=== PATIENT | male | born 1975 | race Caucasian/White ===

== ENCOUNTER 2018-09-16 23:32 | Emergency (ER) | payer OTHER ==
[~2018-09-16] VITALS: Ht 190.5 cm; Wt 115.7 kg
--- NOTE | 2018-09-17 00:07 | NUR ---
ED Nurse Note: Pt walked into ER stating that he has a laceration on L ring finger. Pt is AO x 4times, VSS, on room air no distress. MUNAD seen Pt at bedside.
[2018-09-17] MEDS ORDERED: Surgicel 4in x 8in TOPIC ONE (00:30)
[2018-09-17] MEDS ORDERED: Lidocaine 1% 10mg/ml/Epi 0.005mg/ml 30ml vial INJ ONE (00:30)
[2018-09-17 00:50] VITALS: BP 136/77
[2018-09-17] MEDS ORDERED: CEPHALEXIN500 MG ORAL (00:50)
[2018-09-17] MEDS ORDERED: IBUPROFEN600 MG ORAL (00:50)
[2018-09-17 01:10] VITALS: BP 136/77
--- NOTE | 2018-09-17 01:10 | NUR ---
ED Nurse Note: Pt cleared DC by ERMLarry. Pt is AO x 4times, VSS, on room air no distress. Belongings given to Pt. DC and meds instructions given to Pt, Pt understood well. ID bend removed. Pt walkled out unit with steady gait.
--- NOTE | 2018-09-18 02:48 | Emergency Room Report ---
History of Present Illness General Chief Complaint: Laceration Source: Patient Present Illness HPI Patient is a 43-year-old male presented after increased bleeding from a laceration. 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 Patient reports having injury approximately 1 hour prior to arrival. Patient reports having up-to-date tetanus vaccine. He had been having persistent bleeding and had been unable to control this. He denies other locations of pain. He is right-hand dominant. Patient had been attempting to hold direct pressure however the bleeding had not stopped. Allergies: Coded Allergies: No Known Allergies (Unverified , 09/17/18) Patient History Past Medical History: see triage record Reviewed Nursing Documentation: PMH: Agreed; PSxH: Agreed Nursing Documentation-PMH Past Medical History: No Stated History Review of Systems All Other Systems: negative except mentioned in HPI Physical Exam Vital Signs Date Time Temp Pulse Resp B/P (MAP) Pulse Ox O2 Delivery O2 Flow Rate FiO2 09/17/18 00:04 98.1 69 14 133/71 99 09/17/18 00:50 Room Air General Appearance: well appearing, no apparent distress, alert, GCS 15 Head: normocephalic, atraumatic ENT: hearing grossly normal, normal voice Neck: full range of motion, supple Respiratory: no respiratory distress, speaking full sentences Cardiovascular #1: normal inspection Gastrointestinal: normal inspection Neurologic: normal inspection, alert, oriented x3, responsive, bag grader III-XII nml as tested, normal gait Psychiatric: mood/affect normal Skin: other - skin avulsion to left ring finger, small amount of oozing Medical Decision Making Diagnostic Impression: Primary Impression: Fingertip avulsion ER Course . .Patient presented for finger injury. Differential diagnosis include was not limited to foreign body, arterial injury, nerve injury among others. Patient has a benign exam and does not appear to require any further imaging or laboratory testing at this time. Patient reports having up-to-date tetanus vaccine. Patient was noted to have some small vessels which were persistently bleeding. Patient's digit was topically anesthetized with lidocaine. Electrocautery was performed with control of bleeding. Patient was subsequently irrigated by tech and antibiotic ointment was applied. Patient appears to have a skin avulsion. There is not appear to be any evident bony injury. Patient was given prescription for topical antibiotics. He was advised to change dressings daily and to follow-up with workers comp physician in 2-3 days for wound check.Patient does not appear to have any significant blood loss.Patient was given prescription for oral antibiotics as well as pain medications.Patient is placed on limited duty and advised not to use his left upper extremity Last Vital Signs Date Time Temp Pulse Resp B/P (MAP) Pulse Ox O2 Delivery O2 Flow Rate FiO2 09/17/18 01:10 98.3 85 14 136/77 99 Room Air Status: improved Disposition: HOME, SELF-CARE Condition: Stable Scripts Ibuprofen* (MOTRIN*) 600 Mg Tablet 600 MG ORAL Q8H PRN for For Pain, #30 TAB 0 Refills Prov: Jeramy Beth MD 09/17/18 Cephalexin* (KEFLEX*) 500 Mg Capsule 500 MG ORAL EVERY 6 HOURS, #28 CAP Prov: Jeramy Beth MD 09/17/18 Referrals: NOT CHOSEN [facility]/,REFERRING (PCP) Patient Instructions: Traumatic Finger Amputation Jeramy Beth MD Sep 18, 2018 02:48
== END 2018-09-17 01:10 | disposition home or self-care (01) ==
LOC: EMR 09-17 00:20
DX: S61.215A Laceration without foreign body of left ring finger without damage to nail, initial encounter (principal); W26.0XXA Contact with knife, initial encounter; Y92.511 Restaurant or cafe as the place of occurrence of the external cause
CPT/HCPCS: 99283

== ENCOUNTER 2018-09-19 13:11 | Emergency (ER) | payer OTHER ==
[~2018-09-19] VITALS: Ht 190.5 cm; Wt 115.7 kg
[~2018-09-19 13:11] MED LIST: CEPHALEXIN500 MG ORAL; IBUPROFEN600 MG ORAL
--- NOTE | 2018-09-19 13:30 | NUR ---
ED Nurse Note: Patient walked in d/t left ring finger abrasion check up; pt was seen at [facility] on Friday and was informed by ERMD to come back in 3 days for wound re-check. Pt denies pain at this time.
[2018-09-19 13:35] VITALS: BP 152/102
--- NOTE | 2018-09-19 14:14 | Emergency Room Report ---
History of Present Illness General Chief Complaint: Wound Recheck/Suture Removal Source: Patient Present Illness HPI 43 YO Male presents to the ED for finger tip avulsion follow up. has been changing dressing daily. healing but not completely healed yet. has been applying bacitracin. Left index finger. no evidence of infection. denies erythema, tenderness, discharge, bleeding or warmth. pt. reports 3/10 in severity tenderness. States at last ED visit he required some cautery. Allergies: Coded Allergies: No Known Allergies (Unverified , 09/17/18) Patient History Past Medical History: see triage record Past Surgical History: none Pertinent Family History: none Immunizations: UTD Reviewed Nursing Documentation: PMH: Agreed; PSxH: Agreed Nursing Documentation-PMH Past Medical History: No Stated History Hx Hypertension: Yes Review of Systems All Other Systems: negative except mentioned in HPI Physical Exam Vital Signs Date Time Temp Pulse Resp B/P (MAP) Pulse Ox O2 Delivery O2 Flow Rate FiO2 09/19/18 13:20 98.2 82 15 152/102 98 Room Air Sp02 EP Interpretation: reviewed, normal General Appearance: no apparent distress, alert, GCS 15, non-toxic Head: normocephalic, atraumatic Eyes: bilateral eye normal inspection, bilateral eye PERRL ENT: hearing grossly normal, normal voice Neck: full range of motion Respiratory: lungs clear, normal breath sounds, speaking full sentences Cardiovascular #1: regular rate, rhythm, normal capillary refill Musculoskeletal: back normal, gait/station normal, normal range of motion, non- tender Neurologic: alert, oriented x3, responsive, motor strength/tone normal, sensory intact, speech normal, grossly normal Psychiatric: judgement/insight normal Skin: normal color, no rash, warm/dry, well hydrated, wd healing/no infection noted - healing avulsion laceration of the Left 4th digit with no evidence of infection. Medical Decision Making PA Attestation Dr. Etienne is my supervising Physician whom patient management has been discussed with. Diagnostic Impression: Primary Impression: Fingertip avulsion Qualified Codes: S61.209D - Unspecified open wound of unspecified finger without damage to nail, subsequent encounter ER Course 43 YO Male presents to the ED for finger tip avulsion follow up. has been changing dressing daily. healing but not completely healed yet. has been applying bacitracin. Left index finger. no evidence of infection. denies erythema, tenderness, discharge, bleeding or warmth. pt. reports 3/10 in severity tenderness. States at last ED visit he required some cautery. Ddx considered but are not limited to laceration, tendon injury, cellulitis, dehiscence. Vital signs: are WNL, pt. is afebrile H&PE are most consistent with: healing avulsion laceration of the Left 4th digit with no evidence of infection. ORDERS: none required at this time, the diagnosis is clinical ED INTERVENTIONS: - dressing removed and replaced after evaluation. DISCHARGE: At this time pt. is stable for d/c to home. Will provide printed patient care instructions, and any necessary prescriptions. Care plan and follow up instructions have been discussed with the patient prior to discharge. Last Vital Signs Date Time Temp Pulse Resp B/P (MAP) Pulse Ox O2 Delivery O2 Flow Rate FiO2 09/19/18 13:35 98.2 82 15 152/102 98 Room Air Disposition: HOME, SELF-CARE Condition: Stable Referrals: NOT CHOSEN IPA/MD,REFERRING (PCP) Patient Instructions: Wound Check Additional Instructions: Follow up with your Primary Care Provider in 3-5 days, even if your symptoms have resolved. Return sooner to ED if new symptoms occur, or current symptoms become worse. - Please note that this Emergency Department Report was dictated using [employer] engineer technology software, occasionally this can lead to erroneous entry secondary to interpretation by the dictation equipment. Bozena Trevino Sep 19, 2018 14:14
--- NOTE | 2018-09-19 14:31 | NUR ---
ED Nurse Note: pt was cleared for discharge by nate. prescription and discharge instruction explained. pt is aox 4, pt able to verbalize understanding. id band removed. pt able to walk with steady gait. pt left with all belongings. pt was told to follow with PMD if any other symptoms reoccur
[2018-09-19 14:32] VITALS: BP 152/102
== END 2018-09-19 14:32 | disposition home or self-care (01) ==
LOC: EMR 14:00
DX: S61.209D Unspecified open wound of unspecified finger without damage to nail, subsequent encounter (principal); X58.XXXD Exposure to other specified factors, subsequent encounter; I10 Essential (primary) hypertension
CPT/HCPCS: 99282